=== PATIENT | female | born 1985 | race Asian ===

== ENCOUNTER 2022-02-03 07:39 | Emergency (ER) | payer OTHER ==
[~2022-02-03] VITALS: Ht 177.8 cm; Wt 63.5 kg
[2022-02-03 07:50] VITALS: BP_SYST 124
--- NOTE | 2022-02-03 07:50 | NUR ---
Patient to ER bed 8 for evaluation. Side rails up. Report given to Jesús BAUER.
--- NOTE | 2022-02-03 08:08 | NUR ---
PT WALLKED TO ROOM 8 WITH CO ABD PAIN X 1 MONTH WHILE MENSTRUAL PERIOD COMING. BUT PAIN INCREASED YESTERDAY, CRAMPING PAIN MOVED TO LLQ FROM MIDDLE LOWER ABDOMEN. 06/04. DENIES OTHER CO. DR. NEWSOME EXAMINED PT BEDSIDE.
[2022-02-03] MEDS ORDERED: KETOROLAC TROMETHAMINE 30 MG VIAL IVP ONE (08:15)
[2022-02-03] MEDS ORDERED: MORPHINE 4 MG INJ. 4 MG/ML VIAL IVP ONE (08:15)
[2022-02-03 08:38] LABS: BASOPHILS # (AUTO) 0.1 K/uL (0.0-0.2); BASOPHILS % (AUTO) 0.6 % (0.0-2.0); EOSINOPHILS % (AUTO) 0.3 % (0.0-4.0); HEMATOCRIT 34.5 % (36-48); HEMOGLOBIN 11.9 g/dL (12.0-16.0); LYMPHOCYTES # (AUTO) 1.7 K/uL (1.0-5.5); LYMPHOCYTES % (AUTO) 16.4 % (20.5-51.5); MEAN CORPUSCULAR HEMOGLOBIN 30 pg (27-31); MEAN CORPUSCULAR HGB CONC 35 % (32-36); MEAN CORPUSCULAR VOLUME 88 fL (79.0-98.0); MONOCYTES # (AUTO) 0.9 K/uL (0.0-1.0); NEUTROPHILS # (AUTO) 7.5 K/uL (1.8-7.7); NEUTROPHILS % (AUTO) 73.7 % (40.0-70.0); PLATELET COUNT (AUTO) 319 K/uL (130-430); RED BLOOD CELL COUNT(AUTO) 3.94 MIL/uL (4.2-6.2); RED CELL DISTRIBUTION WIDTH 12.6 % (9.0-15.0); WHITE BLOOD COUNT (AUTO) 10.2 K/uL (4.8-10.8)
[2022-02-03 08:56] LABS: BILIRUBIN,URINE NEGATIVE (NEGATIVE); BLOOD, URINE 1+ (NEGATIVE); COLOR,URINE YELLOW (YELLOW); GLUCOSE,URINE NEGATIVE (NEGATIVE); KETONES,URINE NEGATIVE (NEGATIVE); LEUKOCYTE ESTERASE ,URINE 1+ (NEGATIVE); NITRITE, URINE NEGATIVE (NEGATIVE); PH,URINE 6.5 (5.0-8.0); PROTEIN URINE NEGATIVE (NEGATIVE); UROBILINOGEN,URINE 0.2 (0.2-1.0)
[2022-02-03 08:57] LABS: CALCIUM 8.5 mg/dL (8.4-11.0); CREATININE 0.75 mg/dL (0.55-1.30)
[2022-02-03 08:59] LABS: CLARITY/URINE SLIGHTLY HAZY (CLEAR)
[2022-02-03 09:03] LABS: ALBUMIN 3.4 g/dL (3.4-4.8); TOTAL BILIRUBIN 0.7 mg/dL (0.0-1.0)
[2022-02-03 09:11] LABS: BACTERIA,URINE MODERATE /HPF (None Seen)
[2022-02-03] MEDS ORDERED: CEPH-548 PO (11:57)
--- NOTE | 2022-02-03 12:18 | NUR ---
Patient given written and verbal discharge instructions and verbalizes understanding. ER MD discussed with patient the results and treatment provided. Patient in stable condition. ID arm band removed. IV catheter removed intact and dressing applied, no active bleeding. Rx of KEFLEX given. Patient educated on pain management and to follow up with PMD. Pain Scale 2. Opportunity for questions provided and answered. Medication side effect fact sheet provided.
[2022-02-03 12:31] VITALS: BP_SYST 118
== END 2022-02-03 12:31 | disposition home or self-care (01) ==
LOC: SED 07:39
DX: N39.0 Urinary tract infection, site not specified (principal); R10.11 Right upper quadrant pain
CPT/HCPCS: 36415; 76705; 80053; 81000; 81025; 83690; 85025; 87086; 96374; 96375; 99284; J1885; J2270